=== PATIENT | female | born 1975 | race Caucasian/White ===

== ENCOUNTER 2022-12-24 21:13 | Emergency (ER) | payer OTHER ==
[~2022-12-24] VITALS: Ht 170.2 cm; Wt 174.6 kg
[2022-12-24 22:04] VITALS: BP 154/88
--- NOTE | 2022-12-24 22:13 | NUR ---
COVID SWAB COLLECTED AND SENT TO LAB
--- NOTE | 2022-12-24 22:44 | NUR ---
DR LAW CHURCH AT PT'S BEDSIDE
[2022-12-24] MEDS ORDERED: ACETAMINOPHEN ES 500 MG TABLET ONE (23:05)
[2022-12-24] MEDS: ACETAMINOPHEN ES 500 MG TABLET PO ONE (23:07)
[2022-12-24] MEDS ORDERED: AMOX-430 PO ×2 (23:28)
--- NOTE | 2022-12-24 23:43 | NUR ---
Pt is been discharge with all dsicharge instructions given and OK to Book as COVID19 test is negetive per requested by [employer].
--- NOTE | 2022-12-24 23:44 | NUR ---
PT IS MEDICALLY CLEARED FOR BOOKING AND RELAESED UNDER THE CARE PF [employer] OFFICERS. PT IS IN STABLE CONDITION. SHE IS AMBULATORY ON STEADY GAIT.
== END 2022-12-24 23:45 ==
LOC: ER 21:20
DX: H66.92 Otitis media, unspecified, left ear (principal); Z20.822 Contact with and (suspected) exposure to COVID-19; Z88.8 Allergy status to other drugs, medicaments and biological substances; Z60.2 Problems related to living alone
CPT/HCPCS: 99283; 87426; C9803